=== PATIENT | male | born 1950 | race Caucasian/White ===

== ENCOUNTER 2016-08-16 08:48 | Emergency (ER) | payer MEDICAID, MEDICARE ==
[~2016-08-16] VITALS: Ht 175.3 cm; Wt 85.0 kg
[~2016-08-16 08:48] MED LIST: HYDR-523 PO; METH500T PO
[2016-08-16] MEDS ORDERED: TRAMADOL 50MG TABLET PO ONE (10:15)
[2016-08-16] MEDS ORDERED: IBUPROFEN 600MG TABLET PO ONE (10:15)
[2016-08-16 10:55] VITALS: BP 141/72
== END 2016-08-16 12:15 | disposition home or self-care (01) ==
LOC: ER 09:52
DX: R07.9 Chest pain, unspecified (principal); M79.604 Pain in right leg; R06.02 Shortness of breath; R42 Dizziness and giddiness; Z88.0 Allergy status to penicillin
CPT/HCPCS: 93005; 99283